=== PATIENT | male | born 1940 | race African-American/Black ===

== ENCOUNTER 2017-05-28 14:07 | Inpatient (IN) | payer OTHER ==
[~2017-05-28] VITALS: Ht 170.2 cm; Wt 58.5 kg
--- NOTE | 2017-05-28 14:07 | NUR ---
Patient was BIBA and taken to bed 08 via gurney per EMS.
--- NOTE | 2017-05-28 14:10 | NUR ---
Dr. Rodrigues evaluating patient at bedside.
[2017-05-28] MEDS ORDERED: NACL 0.9% 1,000 ML IV SCH (14:11)
[2017-05-28 14:13] VITALS: BP 75/49
--- NOTE | 2017-05-28 14:15 | NUR ---
77M BIBA FROM HOME FOR ALTERED LOC; PT AWAKE ON ARRIVAL, BUT NO RESPONSE TO VERBAL OR PAINFUL STIMULI; PT NOT VERBALLY RESPONSIVE AT THIS TIME; PER [facility], PT WAS FOUND ON THE GROUND BY FAMILY; PER [facility], FAMILY LAST SAW PATIENT NORMAL ON 05/20/17; BL LUNG SOUNDS CLEAR, RR EVEN/UNLABORED AT THIS TIME; PT NOTED WITH SLIGHT TACHYCARDIA AND TACHPYNEA ON THE MONITOR AT THIS TIME; NO N/V/D NOTED AT THIS TIME; SKIN IS WARM/DRY; PT NOTED SACRAL OPEN WOUND/ERYTHEMA & ERTHYEMA MID-BACK AT THIS TIME; NO BLEEDING NOTED TO SITES AT THIS TIME; PT PLACED ON MONITOR, RESTING IN BED WITH HOB ELEVATED AND IN LOWEST POSITION; POSITIONED FOR COMFORT; ER MADE AWARE OF STATUS. WILL CONTINUE TO MONITOR. Addendum: 05/28/17 at 1558 by [employer] PT NOTED SACRAL OPEN WOUND/ERYTHEMA & ERTHYEMA BL UPPER BACK AT THIS TIME Addendum: 05/28/17 at 1614 by MEDSS SPOTS OF PINK DISCOLORATION NOTED TO LEFT CHEST.
--- NOTE | 2017-05-28 14:15 | NUR ---
Note undone in EDM - 05/28/17 at 1557 by MEDSS 77M BIBA FROM HOME FOR ALTERED LOC; PT AWAKE ON ARRIVAL, BUT NO RESPONSE TO VERBAL OR PAINFUL STIMULI; PT NOT VERBALLY RESPONSIVE AT THIS TIME; PER [facility], PT WAS FOUND ON THE GROUND BY FAMILY; PER [facility], FAMILY LAST SAW PATIENT NORMAL ON 05/20/17; BL LUNG SOUNDS CLEAR, RR EVEN/UNLABORED AT THIS TIME; PT NOTED WITH SLIGHT TACHYCARDIA AND TACHPYNEA ON THE MONITOR AT THIS TIME; NO N/V/D NOTED AT THIS TIME; SKIN IS WARM/DRY; PT NOTED WITH RT SACRAL OPEN WOUND/ERYTHEMA & ERTHYEMA TO RT MID-BACK AT THIS TIME; NO BLEEDING NOTED TO SITES AT THIS TIME; PT PLACED ON MONITOR, RESTING IN BED WITH HOB ELEVATED AND IN LOWEST POSITION; POSITIONED FOR COMFORT; ER MD MADE AWARE OF STATUS. WILL CONTINUE TO MONITOR.
[2017-05-28] MEDS ORDERED: PIPERACILLIN/TAZOBACTAM 3.375 GM VIAL IV ONE (14:29)
[2017-05-28] MEDS: PIPERACILLIN/TAZOBACTAM 3.375 GM in DEXT 5% MINI-BAG PLUS 50 ML IV ONE ×2 (14:30→14:32)
[2017-05-28 14:35] LABS: BASOPHILS # (AUTO) 0.2 K/uL (0.00-0.22); BASOPHILS % (AUTO) 1.6 % (0.0-2.0); HEMATOCRIT 44.5 % (36-52); LYMPHOCYTES # (AUTO) 1.1 K/uL (2.0-11.5); LYMPHOCYTES % (AUTO) 9.1 % (20.5-51.1); MEAN CORPUSCULAR HEMOGLOBIN 30 pg (27-31); MEAN CORPUSCULAR HGB CONC 31 g/dL (33-37); MEAN CORPUSCULAR VOLUME 95 fL (80-94); MONOCYTES # (AUTO) 1.2 K/uL (0.8-1.0); MONOCYTES % (AUTO) 9.2 % (1.7-9.3); NEUTROPHILS % (AUTO) 80.1 % (42.2-75.2); PLATELET COUNT (AUTO) 216 K/uL (140-450); RED CELL DISTRIBUTION WIDTH 13.7 % (11.6-13.7); WHITE BLOOD COUNT (AUTO) 12.5 K/uL (4.8-10.8)
--- NOTE | 2017-05-28 14:38 | NUR ---
PT TAKEN TO CT VIA [facility] ACCOMPANIED BY [facility] AT THIS TIME.
--- NOTE | 2017-05-28 14:51 | NUR ---
Patient back from CT via [facility].
[2017-05-28 15:00] LABS: PROTHROMBIN TIME 12.1 secs (10.8-13.4)
[2017-05-28 15:00] LABS: APPEARANCE,URINE CLEAR (CLEAR); BLOOD, URINE 3+ (NEGATIVE); COLOR,URINE YELLOW (YELLOW); LEUKOCYTE ESTERASE ,URINE NEGATIVE (NEGATIVE); NITRITE, URINE NEGATIVE (NEGATIVE); UGLUCOSE NEGATIVE (NEGATIVE)
[2017-05-28 15:05] LABS: ALBUMIN 3.5 g/dL (3.4-5.0); ASPARTATE AMINOTRANSFERASE 43 U/L (15-37); CARBON DIOXIDE 22.2 mmol/L (21-32); CHLORIDE 126 mmol/L (98-107); GLUCOSE 203 mg/dL (74-106); POTASSIUM 4.2 mmol/L (3.5-5.1); TOTAL BILIRUBIN 1.4 mg/dL (0.0-1.0)
[2017-05-28 15:14] LABS: CREATININE 9.8 mg/dL (0.7-1.3); SODIUM SERUM 169 mmol/L (136-145); UREA NITROGEN, BLOOD 118 mg/dL (7-18)
[2017-05-28 15:19] LABS: BILIRUBIN,URINE NEGATIVE (NEGATIVE)
[2017-05-28 15:21] LABS: RBC,URINE TOO NUMEROUS TO COUN /HPF (0-5); WBC,URINE 0-5 (RARE) /HPF (0-5)
--- NOTE | 2017-05-28 15:21 | NUR ---
FAMILY AT BEDSIDE; ER MD DR. HU AT BEDSIDE AT THIS TIME.
[2017-05-28] MEDS ORDERED: NACL 0.9% 1,000 ML IV ONE (15:35)
[2017-05-28 15:49] LABS: CKMB RELATIVE INDEX 0.3 (0.0-2.5); CREATINE KINASE MB 7.4 ng/mL (0-3.6)
[2017-05-28] MEDS ORDERED: DEXT 5% /NACL 0.9% 1,000 ML IV SCH (15:55)
[2017-05-28] MEDS ORDERED: MORPHINE SULFATE 4 MG/ML SYR IVP PRN (15:55)
[2017-05-28] MEDS ORDERED: ONDANSETRON 4 MG/2 ML VIAL IVP PRN (15:55)
[2017-05-28] MEDS ORDERED: LORazepam 2 MG/ML VIAL IVP PRN (15:55)
[2017-05-28] MEDS ORDERED: VITD1000 PO (16:02)
[2017-05-28] MEDS ORDERED: GABA300C PO (16:02)
[2017-05-28] MEDS ORDERED: FINA5TAB1 PO (16:02)
[2017-05-28] MEDS ORDERED: TIM.5OS OP (16:02)
[2017-05-28] MEDS ORDERED: ATOR10TA PO (16:02)
[2017-05-28] MEDS ORDERED: AMLO5TAB PO (16:02)
[2017-05-28] MEDS ORDERED: TRAM50TA1 PO (16:02)
[2017-05-28] MEDS ORDERED: ASPI81CT89 PO (16:02)
[2017-05-28] MEDS ORDERED: BACL10TA4 PO (16:02)
[2017-05-28] MEDS ORDERED: DOXA2TAB1 PO (16:02)
[2017-05-28] MEDS ORDERED: OMEP20TC12 PO (16:02)
[2017-05-28] MEDS ORDERED: TROS20TA5 PO (16:02)
[2017-05-28] MEDS ORDERED: LATA2.5S8 OP (16:02)
--- NOTE | 2017-05-28 16:13 | NUR ---
Note alisson in ED - 05/28/17 at 1614 by ALAINA SPOTS OF PINK DISCOLORATION NOTED TO LEFT CHEST.
--- NOTE | 2017-05-28 16:20 | NUR ---
Patient will be admitted to care of DR. Jazmyn MIRANDA. Admited to ICU. Will go to room ICU 3. Belongings list completed. Report to ANDRIY VAUGHAN.
--- NOTE | 2017-05-28 16:35 | NUR ---
PT ARRIVED VIA GURNEY WITH ED RN PRESENT. PT NONRESPONSIVE, DROWSY, ON O2 8L/MIN VIA NON-REBREATHER MASK. 20G IV ON LEFT HAND AND RIGHT WRIST. PATENT AND INTACT. SITE CLEAR, NO REDNESS OR SWELLING NOTED. 16F TAVAREZ CATHETER IN PLACE, WITH 150ML OUTPUT OF LIGHT CYN URINE. WOUND NOTED TO SACROCOCCYX. MRSA SWAB OBTAINED. ADMISSION ASSESSMENT COMPLETE. PT ON MONITOR WITH VS: BP 120/43, P 82, R 27, T 97.3, AND FLACC 0. SINUS RHYTHM ON MONITOR. SAFETY PRECAUTION IN PLACE WITH BED AT LOWEST POSSIBLE POSITION, SIDE RAILS UP X2. CALL LIGHT WITHIN REACH. FAMILY CURRENTLY AT BEDSIDE. WILL CONTINUE TO MONITOR.
[2017-05-28 16:42] VITALS: BP 120/43
--- NOTE | 2017-05-28 16:49 | NUR ---
INSERTED NO 16 BELIZEAN INDWELLING TAVAREZ CATHETER W/O DIFFICULTY IMMEDIATE RETURN OF CYN COLORED URINE OPATIENT TOLERATED WELL.
--- NOTE | 2017-05-28 18:00 | NUR ---
DISCOVERED PT HAS DISCOLORED BUMP NOTED ON TOP OF HEAD. CT SCAN COMPLETED IN ER. NO ACUTE INTRACRANIAL PATHOLOGY ACCORDING TO IMAGING RESULT. PT HAS D5NS INFUSING AT 100ML/HR.
[2017-05-28 18:50] VITALS: BP 102/72
--- NOTE | 2017-05-28 19:30 | NUR ---
RECEIVED PT FROM AM SHIFT. PT DROWSY,RESPOND TO PAIN STIMULATE. ON O2 AT 2 LPM VIA NASAL CANULA. O2 SAT 95 %. SINUS RHYTHM ON MONITOR. LUNGS SOUND CLEAR. MULTIPLE OPEN AREA ON THE BODY. PT NPO AT THIS TIME. ON IV D5 IN NS AT 100 CC/HR TO RIGHT WRIST WITH NO 20 GAUGE AND IV LINE TO LEFT HAND WITH 20 GAUGE, PORT INTACT WELL.SKIN DRY WARM TO TOUCH.F/C INPLACE WITH YELLOW URINE DRAIN BY GRAVITY.SAFETY PRECAUTION RENDERED.
[2017-05-28 20:00] VITALS: BP 136/70
[2017-05-28] MEDS: PIPER/TAZO 2.25GM/D5W PREMIX 50 ML IV SCH (20:53)
[2017-05-28] MEDS ORDERED: PIPERACILLIN/TAZOBACTAM 2.25 GM in DEXTROSE 5% 50 ML IV SCH (21:00)
--- NOTE | 2017-05-28 21:00 | NUR ---
IV ABT ZOSYN 2.25 GRAM GIVEN TO RIGHT WRIST TOLERATED WELL.
[2017-05-28 22:00] VITALS: BP 120/73
--- NOTE | 2017-05-28 22:00 | NUR ---
PT SLEEPING WELL,NO S/S OF RESP DISTRESS,NO SOB NOTED.
--- NOTE | 2017-05-28 23:30 | NUR ---
BLOOD DRAWN FOR CARDIAC PANEL DONE RESULT STILL PENDING.
[2017-05-29] VITALS (9 sets, daily range): BP systolic 106–129; BP diastolic 63–84
[2017-05-29 00:30] LABS: CREATINE KINASE MB 92.4 ng/mL (0-3.6)
--- NOTE | 2017-05-29 00:55 | NUR ---
DR.PALIWAL MENA BACKEND DEVELOPER MADE AWARE TROPONIN LEVEL 1.537. NEW ORDER GIVEN TO DO ECG AND ECHO IN AM. ORDER WAS CARRIED OUT.
--- NOTE | 2017-05-29 02:30 | NUR ---
PT SLEEPING WELL,NO S/S OF PAIN OR DISCOMFORT AT THIS TIME.NO S/S OF RESP DISTRESS,NO SOB.
[2017-05-29] MEDS: PIPER/TAZO 2.25GM/D5W PREMIX 50 ML IV SCH ×3 (04:40→20:11)
[2017-05-29] MEDS: MORPHINE SULFATE 2 MG/ML SYR IVP PRN (04:41)
--- NOTE | 2017-05-29 04:41 | NUR ---
PAIN NOTED BY FACIAL GRIMMICING AND MOANING. PT TRY TO OPEN HIS EYES WHEN CALLING HIS NAME. REPOSITION PT FOR COMFORT. PRN PAIN MEDS GIVEN ORDERED.
--- NOTE | 2017-05-29 05:00 | NUR ---
AM MEDS GIVEN,AM CARE RENDERED.KEPT CLEAN AND DRY.
--- NOTE | 2017-05-29 05:11 | NUR ---
RE ASSESSMENT DONE FOR PAIN,PT SLEEPING WELL,NO S/S OF PAIN OR DISCOMFORT AT THIS TIME.
[2017-05-29 07:19] LABS: HEMATOCRIT 40.9 % (36-52); HEMOGLOBIN 12.9 g/dL (12.0-18.0); MEAN CORPUSCULAR HEMOGLOBIN 30 pg (27-31); MEAN CORPUSCULAR HGB CONC 32 g/dL (33-37); MEAN CORPUSCULAR VOLUME 96 fL (80-94); RED BLOOD CELL COUNT(AUTO) 4.27 MIL/uL (4.20-6.10); RED CELL DISTRIBUTION WIDTH 14.1 % (11.6-13.7); WHITE BLOOD COUNT (AUTO) 11.5 K/uL (4.8-10.8)
--- NOTE | 2017-05-29 07:20 | NUR ---
RECEIVED REPORT FROM NIGHT RN FOR CONTINUITY OF CARE. PT LETHARGIC, EASILY AROUSABLE TO NAME AND PAIN. RIGHT PERIPHERAL IV NOTED, PATENT AND INTACT. LEFT PERIPHERAL IV PATENT AND INTACT. D5NS INFUSING AT 100ML/HR TO RIGHT HAND. TAVAREZ CATHETER IN PLACE. NO SOB NOTED. VS WNL. SINUS BRADYCARDIA ON MONITOR. FLACC 0. SCD IN PLACE. BED AT LOWEST POSSIBLE POSITION, CALL LIGHT WITHIN REACH. WILL CONTINUE TO MONITOR PT.
[2017-05-29 07:42] LABS: PLATELET COUNT (AUTO) 163 K/uL (140-450)
[2017-05-29 07:43] LABS: LYMPHOCYTES % (MANUAL) 6 % (20-46); MONOCYTES % (MANUAL) 3 % (5-12)
--- NOTE | 2017-05-29 07:49 | NUR ---
PATIENT HAS BEEN RESCREENED AND RE-CATEGORIZED HIGH NUTRITION RISK. PATIENT WILL BE SEEN WITHIN 1-2 DAYS OF ADMISSION. 05/29/17-05/30/[address]
--- NOTE | 2017-05-29 08:11 | NUR ---
RECEIVED A CALL FROM [employer] [facility], [place]. WILL HAVE LABS [place].
--- NOTE | 2017-05-29 08:16 | NUR ---
RT AT BEDSIDE. EKG PERFORMED.
--- NOTE | 2017-05-29 09:22 | NUR ---
PAGED DR. Jazmyn MIRANDA REGARDING CRITICAL LAB VALUES. AWAITING CALLBACK.
--- NOTE | 2017-05-29 09:30 | NUR ---
RECEIVED CALLBACK FROM DR. Jazmyn MIRANDA. NEW ORDERS RECEIVED.
[2017-05-29 09:33] LABS: ANION GAP 18.6 (8-16); CHLORIDE 130 mmol/L (98-107); GLUCOSE 426 mg/dL (74-106); POTASSIUM 3.6 mmol/L (3.5-5.1); SODIUM SERUM 167 mmol/L (136-145)
[2017-05-29 09:34] LABS: CREATININE 9.1 mg/dL (0.7-1.3); UREA NITROGEN, BLOOD 167 mg/dL (7-18)
[2017-05-29 09:35] LABS: ALBUMIN 2.7 g/dL (3.4-5.0); ASPARTATE AMINOTRANSFERASE 151 U/L (15-37); MAGNESIUM 2.9 mg/dL (1.8-2.4); PHOSPHORUS 3.7 mg/dL (2.5-4.9)
[2017-05-29 09:44] LABS: CREATINE KINASE MB 55.4 ng/mL (0-3.6)
--- NOTE | 2017-05-29 10:20 | NUR ---
PT TRANSPORTED TO RADIOLOGY DEPARTMENT.
--- NOTE | 2017-05-29 10:32 | NUR ---
DR. Jazmyn MIRANDA IN TO SEE PT. WILL FOLLOW UP ON ORDERS.
--- NOTE | 2017-05-29 11:30 | NUR ---
PT RETURNED FROM RADIOLOGY DEPARTMENT.
[2017-05-29] MEDS: DEXT 5% / NACL 0.45% 1,000 ML IV SCH ×2 (11:40→20:10)
--- NOTE | 2017-05-29 11:45 | NUR ---
US TECH AT BEDSIDE FOR ECHOCARDIOGRAM.
[2017-05-29] MEDS: BLOOD GLUCOSE MONITORING 1 DEV DEV FS SCH ×3 (11:46→20:52)
[2017-05-29] MEDS: INSULIN LISPRO SLIDING SCALE 100 UNITS/ML VIAL SUBQ PRN ×3 (11:50→20:59)
--- NOTE | 2017-05-29 12:08 | NUR ---
PAGED DR. Jazmyn MIRANDA REGARDING MEDICATION RECONCILIATION. AWAITING CALLBACK.
--- NOTE | 2017-05-29 14:10 | NUR ---
DR. MCKEON SEEN AND EVALUATED PT. SPOKE WITH PT'S BROTHER REGARDING PT CONDITION. DISCUSSED PLANS OF POSSIBLE DIALYSIS. RECEIVED NEW ORDERS TO INCREASE IV FLUID RATE AT 150ML/HR. ORDERS CARRIED OUT.
--- NOTE | 2017-05-29 14:46 | NUR ---
US TECH AT BEDSIDE FOR US OF KIDNEYS.
--- NOTE | 2017-05-29 15:20 | NUR ---
DR. Jean MIRANDA CAME IN TO SEE AND ASSESS PT. WILL FOLLOW UP ON ORDERS.
--- NOTE | 2017-05-29 16:40 | NUR ---
SPEECH THERAPIST AT BEDSIDE FOR SWALLOW EVAL.
--- NOTE | 2017-05-29 17:12 | NUR ---
* ST NOTE * Pt seen at bedside w/brother and nsg present. Pt appearing lethargic and not verbally replying to inquiries consistently. Bedside dysphagia and oral mechanism exams completed. See evaluation report for further details. Pt tolerating 0/1 alternating PO trial of 3-4 CCs of honey-thick apple juice via a spoon, as well as 0/1 alternating PO trial of 3-4 CCs of puree apple sauce via a spoon, all exhibiting delay and difficulty with AP bolus transit, as well as 30+ second delay with swallow initiation, placing pt at high risk for premature spillage, penetration and aspiration. Therapeutic feeding trials were thus concluded at this time and oral cavity was cleared of remaining residue and pocketed bolus. It is thus recommended pt remain NPO at this time secondary to moderate oropharyngeal dysphagia. ST to follow up 1-2x in next 1 week to further assess pt's potential for PO intake as well as to further address swallow function. Pt, caregivers/nsg and caregivers/brother education completed regarding results of evaluation, benefits of receiving skilled DIRECTOR DATABASE services, POC and prognosis for improvement; with pt indifferent to clinician's recommendations but w/caregiver/brother and caregivers/nsg verbalizing understanding and agreement w/clinician's recommendations. Recommend: - Pt remain NPO at this time secondary to mild to moderate dysphagia as well as ALOC - Caregivers/nsg/staff to complete oral hygiene care daily ST to follow up 1-2x in next 1 week to further assess swallow function and potential for PO intake. G8996 CM G8997 CM NOMS Level 6 Time In/Out 16:40 - 17:10
--- NOTE | 2017-05-29 18:00 | NUR ---
TALK TO FAMILY ARE NOT SURE ABOUT VACCINATION. WOULD LIKE TO LET US KNOW AFTER THEY FIND OUT FOR SURE BEFOR GIVE THE ANSWER .
--- NOTE | 2017-05-29 18:10 | NUR ---
FAMILY AT BEDSIDE. PT'S DAUGHTER, MARY, REQUESTING TO SPEAK WITH [employer] COOK. MESSAGED LEFT TO [employer]. WILL ENDORSE TO NIGHT NURSE.
--- NOTE | 2017-05-29 19:10 | NUR ---
REPORT GIVEN TO NIGHT RN FOR CONTINUITY OF CARE. ENDORSED INFORMATION REGARDING POSSIBLE MEETING OF DAUGHTER WITH [facility] PER DAUGHTER'S REQUEST.
--- NOTE | 2017-05-29 19:14 | NUR ---
WEANED TO ROOM AIR.
--- NOTE | 2017-05-29 19:30 | NUR ---
recieved pt. confused, respiration even and unlabored, on npo, failed swallow evaluation, turned to sides, no distress noted.
[2017-05-30] VITALS: BP 106/49
[2017-05-30] MEDS: DEXT 5% / NACL 0.45% 1,000 ML IV SCH ×4 (03:31→18:55)
[2017-05-30 04:00] VITALS: BP 101/74
[2017-05-30 05:00] LABS: EOSINOPHILS # (AUTO) 0.1 K/uL (0-0.4)
[2017-05-30] MEDS: PIPER/TAZO 2.25GM/D5W PREMIX 50 ML IV SCH ×3 (05:07→21:04)
[2017-05-30 06:05] LABS: BASOPHILS # (AUTO) 0.1 K/uL (0.00-0.22); BASOPHILS % (AUTO) 0.7 % (0.0-2.0); EOSINOPHILS % (AUTO) 0.9 % (0.0-4.0); HEMATOCRIT 36.8 % (36-52); HEMOGLOBIN 11.7 g/dL (12.0-18.0); LYMPHOCYTES # (AUTO) 0.6 K/uL (2.0-11.5); LYMPHOCYTES % (AUTO) 4.5 % (20.5-51.1); MEAN CORPUSCULAR HEMOGLOBIN 30 pg (27-31); MEAN CORPUSCULAR HGB CONC 32 g/dL (33-37); MEAN CORPUSCULAR VOLUME 94 fL (80-94); MONOCYTES # (AUTO) 0.6 K/uL (0.8-1.0); MONOCYTES % (AUTO) 4.8 % (1.7-9.3); NEUTROPHILS # (AUTO) 11.3 K/uL (1.8-7.7); NEUTROPHILS % (AUTO) 89.1 % (42.2-75.2); PLATELET COUNT (AUTO) 122 K/uL (140-450); RED CELL DISTRIBUTION WIDTH 13.8 % (11.6-13.7)
[2017-05-30 06:29] LABS: ANION GAP 17.3 (8-16); CARBON DIOXIDE 20.5 mmol/L (21-32); CHLORIDE 130 mmol/L (98-107); GLUCOSE 283 mg/dL (74-106); MAGNESIUM 2.3 mg/dL (1.8-2.4); PHOSPHORUS 2.9 mg/dL (2.5-4.9); POTASSIUM 3.8 mmol/L (3.5-5.1)
[2017-05-30 06:39] LABS: WHITE BLOOD COUNT (AUTO) 12.7 K/uL (4.8-10.8)
[2017-05-30 06:55] LABS: CREATININE 8.7 mg/dL (0.7-1.3); SODIUM SERUM 164 mmol/L (136-145); UREA NITROGEN, BLOOD 116 mg/dL (7-18)
--- NOTE | 2017-05-30 07:15 | NUR ---
RECEIVED PATIENT ON BED.INITIAL ASSESSMENT DONE TO PATIENT .RIGHT WRIST 20 GAUGE IV WITH D5.45 AT 150 ML/H .NO SIGNS OF INFILTRATION.LEFT HAND IV OCCLUDED.REMOVED.PT TOLERATED WELL.PT ON ROOM AIR.TAVAREZ WITH YELLOW URINE OUTPUT.NO CO PAIN.PT IS ALERT TO PERSON BUT WITH PERIODS OF CONFUSION.NSR ON THE MONITOR.MEPILEX AT SACRAL, BACK, POSTERIOR HEAD DRY AND INTACT .WILL MONITOR.
[2017-05-30] MEDS ORDERED: PROBIOTIC SCREEN 1 EA MISC MC PRN (07:30)
[2017-05-30] MEDS: INSULIN LISPRO SLIDING SCALE 100 UNITS/ML VIAL SUBQ PRN ×3 (07:50→21:10)
[2017-05-30 08:00] VITALS: BP 103/54
[2017-05-30] MEDS: BLOOD GLUCOSE MONITORING 1 DEV DEV FS SCH ×4 (08:00→21:00)
--- NOTE | 2017-05-30 08:00 | NUR ---
jere orantes at the bedside and notified patient is going to [facility].
--- NOTE | 2017-05-30 08:15 | NUR ---
RECEIVED REPORT FROM RUBY ASHRAF.
--- NOTE | 2017-05-30 08:15 | NUR ---
report given to char sutherland rn. Addendum: 05/30/17 at 1533 by Meenakshi Fowler RN RN OFE OWENS
--- NOTE | 2017-05-30 08:30 | NUR ---
PATIENT IS AAOX2, RESPIRATORY EVEN AND UNLABORED, NO SIGNS AND SYMPTOMS OF ACUTE DISTRESS. OTHER NURSES ASSISTED ME IN TRANSFERRING PATIENT FROM BED TO BED, PATIENT TOLERATED WELL. HAS D5 1/2 NS INFUSING AT 150ML/HR TO RIGHT WRIST IN 20G. SITE IS CLEAN, DRY AND INTACT. PATIENT HAS TAVAREZ CATHETER TO GRAVITY. ORIENTED PATIENT TO ROOM, BED IN LOWEST POSITION, SIDERAILS UP X2, CALL LIGHT PLACED WITHIN REACH, BED ALARM ON. WILL CONTINUE TO MONITOR.
--- NOTE | 2017-05-30 08:30 | NUR ---
TRANSFER PATIENT TO 107 A WITH A MONITOR.NO CO PAIN .SON AT THE BEDSIDE WHILE TRANSFERRING.
--- NOTE | 2017-05-30 09:45 | NUR ---
REASON FOR EVALUATION: MULTIPLE WOUNDS COMPLETE SKIN ASSESSMENT DONE ON THIS 89Y/O MALE PATIENT FROM HOME TO [facility], WITH INITIAL DIAGNOSIS OF FEVER ANDPT. WAS FOUND UNRESPONSIVE AT HOME, PT. WAS LAST SEEN ON 05/20/2017. PAST MEDICAL HISTORY INCLUDE HTN, CHRONIC PAIN, MS, DYSLIPIDEMIA AND DYSPEPSIA. ALL ABOVE INFORMATION WAS OBTAINED FROM THE ADMISSION H&P. LABS ARE WBC 12.7, H/H 11.7/36.8, GLUCOSE 283, ALBUMIN 2.7. CURRENT MEDS INCLUDE PIPERACILLIN, INSULIN, MORPHINE SULFATE AND ATIVAN. PATIENT IS AWAKE, ALERT, AND ABLE TO FOLLOW COMMANDS. SKIN WARM TO TOUCH WNL, VERY SENSITIVE TO TOUCH.THICKENED TOENAILS, NO EDEMA, NO HAIR GROWTH AND BILATERAL PEDAL PULSES PRESENT. RIGHT FOREARM PERIPHERAL IV PATENT AND INTACT. #16 TAVAREZ CATHETER PATENT AND INTACT TO CYN COLORED URINE IN SMALL AMOUNT. NEEDS ASSISTANCE IN TURNING. SON, PABLO, AT BED SIDE. PLAN OF CARE DISCUSSED WITH PT AND PRIMARY NURSE. RECOMMENDATIONS DISCUSSED WITH PRIMARY RN AND MD AT BED SIDE WILL FOLLOW UP PATIENT Q 7 -10 DAYS AND PRN. PLEASE CONTACT WOUND CARE NURSE FOR ANY CONCERNS AND CHANGES IN WOUND CONDITION
--- NOTE | 2017-05-30 11:32 | NUR ---
05/30/17 RD INITIAL ASSESSMENT COMPLETED PLEASE REFER TO NUTRITION ASSESSMENT UNDER CARE ACTIVITY FOR ESTIMATED NUTRITIONAL NEEDS. 1. WHEN MEDICALLY FEASIBLE, INITIATE PO DIET - CARDIAC WITH TEXTURE PER ST RECOMMENDATIONS 2. ADD VITAMIN C SUPPLEMENT 1000 MG/DAY (FOR WOUND HEALING) 3. RD TO FOLLOW-UP 2-3 DAYS, HIGH RISK ASHA JAY RD
--- NOTE | 2017-05-30 11:34 | NUR ---
SPOKE WITH BHAVNA FROM [place]. HE SAID THE DAUGHTER OF THE PATIENT CALLED THEM AND WANTED TO KNOW IF THE PATIENT COULD BE TRANSFERED TO [place]. BHAVNA ASKED ME TO SEND SOME INFORMATION. SENT ER REPORT, H&P , CONSULT TO HIM AT [phone]. PHONE [phone]. HE ALSO SAID AT PRESENT NO BEDS.
--- NOTE | 2017-05-30 11:40 | NUR ---
CALLED [facility] AND SPOKE WITH GENIE. SHE SAID THEY HAVE A CONTRACT WITH [place]. SENT INQUIRY TO HER FAX [phone]. I INFORMED THE SON IN LAW,PABLO, THAT [facility] HAS A CONTRACT WITH [place]. I ALSO GAVE HIM A LIST OF SNF'S. Addendum: 05/30/17 at 1144 by Crystal Freeman SENT FACE SHEET ONLY TO [facility]
[2017-05-30 12:00] VITALS: BP 103/53
[2017-05-30] MEDS ORDERED: THERAHONEY GEL 42.5 GM TP PRN (12:40)
[2017-05-30] MEDS ORDERED: FOAM DRESSING TP PRN (12:40)
[2017-05-30] MEDS ORDERED: Z-GUARD PASTE TP PRN (12:40)
[2017-05-30] MEDS ORDERED: SKINTEGRITY HYDROGEL TP PRN (12:40)
[2017-05-30] MEDS: SKINTEGRITY HYDROGEL TP SCH (13:00)
[2017-05-30] MEDS: FOAM DRESSING TP SCH (13:00)
[2017-05-30] MEDS: THERAHONEY GEL 42.5 GM TP SCH (13:00)
[2017-05-30] MEDS: Z-GUARD PASTE TP SCH (13:00)
[2017-05-30] MEDS: NACL 0.9% IRR 250 ML BOTTLE IR SCH (13:00)
[2017-05-30] MEDS: MORPHINE SULFATE 2 MG/ML SYR IVP PRN (13:36)
--- NOTE | 2017-05-30 14:00 | NUR ---
RECEIVED WOUND CARE ITEMS FROM PHARMACY TO CHANGE PATIENTS DRESSING. PATIENT HAS ALREADY BEEN MEDICATED WITH MORPHINE.
--- NOTE | 2017-05-30 14:40 | NUR ---
NEW DRESSINGS APPLIED TO AREAS ORDERED PER WOUND CARE NURSE. TRANSFERRED PATIENT TO OFF LIFT BED. PATIENT TOLERATED WELL. WILL CONTINUE TO MONITOR.
[2017-05-30 16:00] VITALS: BP 110/55
--- NOTE | 2017-05-30 16:29 | NUR ---
* ST NOTE * Pt seen at bedside w/nsg and pt's daughter Kelly present. Pt consenting to tx w/daughter Kelly present. Pt alert but moderately cooperative throughout session, reporting c/o pain at wound sites when moving HOB up but pt stating pain subsiding once he stops moving. Nsg aware of pt's c/o pain. Pt tolerating 4/4 alternating PO trials of puree apple sauce 3-4 CCs at a time via a spoon w/out s/s of aspiration. Pt exhibiting tongue thrust during initial PO trial and occasionally requiring verbal cueing to swallow bolus. Pt also tolerating 2/3 alternating PO trials of thin liquid apple juice via a straw w/out s/s of aspiration but exhibiting coughing on 1/3 trials. Pt then tolerating 6/6 alternating PO trials of thin liquid apple juice via a cup w/out s/s of aspiration. Pt and caregiver/daughter education completed regarding safe swallow compensatory strategies pt and caregivers/daughter/nsg could utilize to aid pt w/swallow function, as well as recommendation for pt to drink liquids via a cup as opposed to a straw until pt's level of alertness improves/increases, with pt indifferent to clinician's remarks but w/caregiver/daughter verbalizing understanding and agreement w/clinician's recommendations. It is thus recommended pt be DCed off NPO status and pt begin PO intake of puree textures w/thin liquids for all meals, requiring close supervision during PO intake by caregivers/family/staff to assure strict aspiration precautions are in place, with pt indifferent once again but w/daughter/caregiver verbalizing understanding and agreement as well. Recommend: - D/C NPO status - Begin PO diet consistency of Puree textures w/Thin liquids for all meals - Pt requires total assistance w/feeding - Feeder to sit pt up at 70-90 degree angle during PO intake, alternating btwn solids and liquids, utilizing small bites/sips - Caregivers/family/nsg to encourage pt to drink from a cup, but pt may drink from straw if he insists - Utilize STRICT aspiration precautions during PO intake, especially if pt insists on drinking liquids via straw ST to follow up x1 in next 3 days. G8997 NOMS Level 3 Time In/Out 15:15 - 16:00 PVE w/daughter re: aspiration precautions and ST ff x1 in next 3 days.
--- NOTE | 2017-05-30 16:30 | NUR ---
PATIENT IS SLEEPING, DAUGHTER IS AT THE BEDSIDE. WILL CONTINUE TO MONITOR.
--- NOTE | 2017-05-30 19:15 | NUR ---
ENDORSED PATIENT TO PAY STATION DEPARTMENT MANAGER RN FOR CONTINUITY OF CARE. PATIENT IN STABLE CONDITION.
--- NOTE | 2017-05-30 19:30 | NUR ---
RECEIVED REPORT FROM DAY RN. PATIENT RESTING IN WOUND BED. THE THERAPY SURFACE IS IN ACTIVE MODE. PATIENT IS CONFUSED, ORIENTED PATIENT TO THE ROOM, DATE AND TIME. IV PATENT AND INTACT, INFUSING D5 1/5NS AT 150ML/HR, NOTED TAVAREZ IN PLACE, DRAINING URINE BY GRAVITY. DRESSING OVER THE SACRALCOCCYX AREA CLEAN AND INTACT. DRESSING TO THE LT POSTERIOR KNEE, CLEAN AND DRY. DRESSING TO THE LT OCCIPITAL CLEAN AND DRY. DRESSING TO THE LT AND RT SCAPULAR , CLEAN AND INTACT, REPOSITIONED THE PATIENT TO HIS LT SIDE WITH THE DIRECTOR OF FIELD SALES. PATIENT TOLERATED WELL. CALL LIGHT WITHIN REACH, SAFETY MEASURE ENSURED, WILL CONTINUE TO MONITOR.
[2017-05-30 20:00] VITALS: BP 91/64
--- NOTE | 2017-05-30 22:25 | NUR ---
PATIENT IS SLEEPING, EASY TO AROUSE. NO S/S OF ACUTE DISTRESS NOTED, RESPIRATION EVEN AND UNLABORED, REPOSITIONED PATIENT TO HIS RIGHT SIDE WITH THE FILTER CHANGING TECHNICIAN, CALL LIGHT WITHIN REACH, SAFETY MEASURE ENSURED, WILL CONTINUE TO MONITOR.
[2017-05-31] VITALS: BP 117/58
--- NOTE | 2017-05-31 00:27 | NUR ---
PATIENT IS SLEEPING, EASY TO AROUSE. VITAL SIGNS WITH IN NORMAL RANGE. NO S/S OF ACUTE DISTRESS NOTED, RESPIRATION EVEN AND UNLABORED, REPOSITIONED PATIENT TO HIS LT SIDE WITH THE STORE OPERATIONS MANAGER, CALL LIGHT WITHIN REACH, SAFETY MEASURE ENSURED, WILL CONTINUE TO MONITOR.
--- NOTE | 2017-05-31 02:32 | NUR ---
PATIENT STATED," I HAD BOWEL MOVEMENT." CHECKED PATIENT, NO BOWEL MOVEMENT, BUT NOTED THE DRESSING ON THE SACRALCOCCYX AREA IS SOILED. DRESSING CHANGED, PATIENT TOLERATED, REPOSITIONED PATIENT TO HIS RT SIDE. CALL LIGHT WITHIN REACH, SAFETY MEASURE ENSURED, WILL CONTINUE TO MONITOR.
[2017-05-31 04:00] VITALS: BP 111/63
--- NOTE | 2017-05-31 04:30 | NUR ---
REPOSITIONED PATIENT TO HIS LEFT SIDE. NO S/S OF DISTRESS NOTED, RESPIRATION EVEN AND UNLABORED, WILL CONTINUE TO MONITOR.
[2017-05-31] MEDS: PIPER/TAZO 2.25GM/D5W PREMIX 50 ML IV SCH ×3 (05:18→20:48)
[2017-05-31] MEDS: DEXT 5% / NACL 0.45% 1,000 ML IV SCH ×4 (05:18→23:46)
--- NOTE | 2017-05-31 06:04 | NUR ---
PATIENT RESTING IN BED, NO S/S OF ACUTE DISTRESS NOTED, RESPIRATION EVEN AND UNLABORED, REPOSITIONED PATIENT TO HIS RIGHT SIDE. CALL LIGHT WITHIN REACH, SAFETY MEASURE ENSURED, WILL CONTINUE TO MONITOR.
[2017-05-31 06:26] LABS: BASOPHILS # (AUTO) 0.1 K/uL (0.00-0.22); BASOPHILS % (AUTO) 1.1 % (0.0-2.0); EOSINOPHILS # (AUTO) 0.4 K/uL (0-0.4); EOSINOPHILS % (AUTO) 3.2 % (0.0-4.0); HEMOGLOBIN 10.7 g/dL (12.0-18.0); LYMPHOCYTES % (AUTO) 8.8 % (20.5-51.1); MEAN CORPUSCULAR HEMOGLOBIN 31 pg (27-31); MEAN CORPUSCULAR HGB CONC 32 g/dL (33-37); MEAN CORPUSCULAR VOLUME 95 fL (80-94); MONOCYTES # (AUTO) 0.3 K/uL (0.8-1.0); MONOCYTES % (AUTO) 2.5 % (1.7-9.3); NEUTROPHILS # (AUTO) 10.1 K/uL (1.8-7.7); NEUTROPHILS % (AUTO) 84.4 % (42.2-75.2); PLATELET COUNT (AUTO) 101 K/uL (140-450); RED BLOOD CELL COUNT(AUTO) 3.49 MIL/uL (4.20-6.10); RED CELL DISTRIBUTION WIDTH 13.6 % (11.6-13.7)
[2017-05-31] MEDS: BLOOD GLUCOSE MONITORING 1 DEV DEV FS SCH ×4 (06:47→20:09)
[2017-05-31] MEDS: INSULIN LISPRO SLIDING SCALE 100 UNITS/ML VIAL SUBQ PRN ×4 (06:49→20:50)
[2017-05-31 07:07] LABS: MAGNESIUM 1.9 mg/dL (1.8-2.4); PHOSPHORUS 4.1 mg/dL (2.5-4.9)
[2017-05-31 07:13] LABS: ANION GAP 18.4 (8-16); CARBON DIOXIDE 18.3 mmol/L (21-32); CHLORIDE 126 mmol/L (98-107); GLUCOSE 236 mg/dL (74-106); POTASSIUM 3.7 mmol/L (3.5-5.1)
--- NOTE | 2017-05-31 07:15 | NUR ---
ENDORSED PLAN OF CARE TO DAY RN. PATIENT RESTING IN BED, NO S/S OF DISTRESS, RESPIRATION EVEN AND UNLABORED.
--- NOTE | 2017-05-31 07:16 | NUR ---
RECEIVED REPORT FROM THE SUPERVISOR FILES NURSE. PT IS AWAKE AND CONFUSED. INTRODUCED MYSELF AND UPDATED THE INFO ON THE BOARD. PT IS SHOUTING ABOUT WANTING TO GO HOME. PT HAS A IV ON R WRIST 20G, D5 1/2 NS AT 150ML INFUSING. PT HAS MULTIPLE WOUNDS, ALL COVERED WITH DRESSING. WILL DO WOUND CARE LATER. WILL CONTINUE TO MONITOR PT.
[2017-05-31 07:24] LABS: CREATININE 8.4 mg/dL (0.7-1.3); SODIUM SERUM 159 mmol/L (136-145); UREA NITROGEN, BLOOD 105 mg/dL (7-18)
--- NOTE | 2017-05-31 07:25 | NUR ---
CRITICAL LABS: SODIUM 159, CREATININE 8.4, BUN 105. WILL NOTIFY
[2017-05-31 07:49] LABS: CKMB RELATIVE INDEX 0.3 (0.0-2.5); CREATINE KINASE MB 17.1 ng/mL (0-3.6)
--- NOTE | 2017-05-31 07:50 | NUR ---
PT V/S WITHIN NORMAL RANGE. PT STATES HE NEEDS TO GO TO THE BATHROOM. REMINDED PT, PT IS ON BEDREST AND PT HAS A TAVAREZ CATH. AND PT REFUSED TO USE A BEDPAN. PT IS UNABLE TO FOLLOW BASIC COMMANDS BUT IS ABLE COMMUNICATE WHAT HIS WANTS AND NEEDS AT THE TIME, EVEN IF IT IS INAPPROPRIATE. DR MIRANDA IS HERE AND NOTIFIED HIM OF THE CRITICAL LABS. MD AWARE. NO NEW ORDERS.
[2017-05-31 07:53] LABS: WHITE BLOOD COUNT (AUTO) 11.9 K/uL (4.8-10.8)
[2017-05-31 08:00] VITALS: BP 123/56
--- NOTE | 2017-05-31 09:20 | NUR ---
PT REQUESTED TO GO HOME. EXPLAINED TO PT THAT HE IS NOT WELL ENOUGH TO GO HOME OF YET. IF ANYTHING, HE NEEDS TO GO TO A SNF TO GET ABX AND PT. PT IS WILLING TO SIGN AN AMA TO GO. TOLD PT THAT I WILL TALK TO HIS DR ABOUT AMA. CALLED DAUGHTER. LEFT MESSAGE TO CALL ME BACK. EXPLAINED SITUATION.
--- NOTE | 2017-05-31 10:35 | NUR ---
PT IS BEING CHANGED BY DENTAL SECRETARY. BROTHER IS HERE. SPOKE TO HIM RE PT'S REQUEST FOR AMA. BROTHER DOES NOT HAVE POWER OF JEWEL INSPECTOR OR CONSERVATORSHIP. UNABLE TO TAKE HIM HOME WELL. POSSIBLY THE DAUGHTER. STILL NO RETURN CALL. WILL CONTINUE TO MONITOR PT.
[2017-05-31 12:00] VITALS: BP 102/55
--- NOTE | 2017-05-31 12:01 | NUR ---
DAUGHTER VISITING. OTHER FAMILY MEMBERS HERE. SPOKE TO DAUGHTER REGARDING PT WANTING TO GO AMA. DAUGHTER IS LOOKING INTO A [place] CONTRACTED SNF FOR P/T AND IV ANTIBIOTICS. FAMILY IS IN AGREEMENT THAT PT WILL BE GOING TO A SNF AND NOT HOME AT THIS TIME. THEY WILL TALK TO THE PT. Addendum: 05/31/17 at 1205 by Adriana Campos RN STUDENT RN TRIED TO START NEW IV ON PT WHEN FAMILY CAME IN. MISSED. WILL ALLOW THE FAMILY TO VISIT NOW. WILL RETRY AGAIN LATER.
--- NOTE | 2017-05-31 13:30 | NUR ---
RESTARTED ANOTHER IV ON R HAND 22G. PT TOLERATED WELL. ALL THE FAMILY LEFT. WILL ADMINISTER NEW BAG OF FLUIDS AND ZOSYN.
[2017-05-31] MEDS: NACL 0.9% IRR 250 ML BOTTLE IR SCH (14:39)
[2017-05-31] MEDS: SKINTEGRITY HYDROGEL TP SCH (14:40)
[2017-05-31] MEDS: THERAHONEY GEL 42.5 GM TP SCH (14:40)
[2017-05-31] MEDS: Z-GUARD PASTE TP SCH (14:41)
--- NOTE | 2017-05-31 14:58 | NUR ---
PT SLEEPING SOUNDLY. NO SIGNS OF DISTRESS. WILL CONTINUE TO MONITOR PT.
--- NOTE | 2017-05-31 15:50 | NUR ---
WOUND CARE DONE. MULTIPLE WOUNDS. DRESSINGS ALL CHANGED. PT TOLERATED WELL. WILL CONTINUE TO MONITOR PT.
[2017-05-31 16:00] VITALS: BP 96/66
--- NOTE | 2017-05-31 17:50 | NUR ---
SOUND SYSTEM INSTALLER FED PT DINNER. ATE 100%. PT TOLERATED WELL. WILL CONTINUE TO MONITOR PT.
--- NOTE | 2017-05-31 19:19 | NUR ---
ENDORSED PT TO THE PROGRAM MEDICAL DIRECTOR NURSE AT BEDSIDE FOR CONTINUITY OF CARE. PT IS IN STABLE CONDITION.
--- NOTE | 2017-05-31 19:20 | NUR ---
RECEIVED REPORT FROM DAY RN. PATIENT RESTING IN WOUND BED AND THE THERAPY SURFACE IS IN ACTIVE MODE. PATIENT IS CONFUSED, ORIENTED PATIENT TO THE ROOM, DATE AND TIME. IV PATENT AND INTACT, INFUSING D5 1/5NS AT 150ML/HR, TAVAREZ IN PLACE, DRAINING URINE BY GRAVITY. DRESSING OVER THE SACRALCOCCYX AREA CLEAN AND INTACT. DRESSING TO THE LT POSTERIOR KNEE, CLEAN AND DRY. DRESSING TO THE LT OCCIPITAL CLEAN AND DRY. DRESSING TO THE LT AND RT SCAPULAR , CLEAN AND INTACT, REPOSITIONED THE PATIENT TO HIS RT SIDE WITH THE KILN FIRER. PATIENT TOLERATED WELL. CALL LIGHT WITHIN REACH, SAFETY MEASURE ENSURED, WILL CONTINUE TO MONITOR.
[2017-05-31 20:00] VITALS: BP 127/77
--- NOTE | 2017-05-31 21:08 | NUR ---
DUE MEDICATION GIVEN, PATIENT TOLERATED WELL. NO S/S OF ACUTE DISTRESS NOTED, REPOSITIONED PATIENT TO HIS LT SIDE, CALL LIGHT WITHIN REACH, SAFETY MEASURE ENSURED ,WILL CONTINUE TO MONITOR.
--- NOTE | 2017-05-31 23:15 | NUR ---
NO CHANGE IN CONDITION, PATIENT IS SLEEPING, EASY TO AROUSE, VITAL SIGNS ARE WITH IN NORMAL RANGE. REPOSITIONED PATIENT TO HIS RIGHT SIDE. CALL LIGHT WITHIN REACH, SAFETY MEASURE ENSURED, WILL CONTINUE TO MONITOR.
[2017-06-01] VITALS: BP 125/56
--- NOTE | 2017-06-01 00:01 | NUR ---
PATIENT IS EXAMINED BY DR. MCKEON, NO NEW ORDER RECEIVED AT THIS TIME.
--- NOTE | 2017-06-01 01:13 | NUR ---
PATIENT ASLEEP IN BED, NO S/S OF DISTRESS NOTED, RESPIRATION EVEN AND UNLABORED, REPOSITIONED PATIENT TO HIS LT SIDE. CALL LIGHT WITHIN REACH, SAFETY MEASURE ENSURED, WILL CONTINUE TO MONITOR.
--- NOTE | 2017-06-01 03:28 | NUR ---
PATIENT HAD BOWEL MOVEMENT, LARGE AMOUNT. CLEANED PATIENT AND CHANGED DRESSING. REPOSITIONED PATIENT TO HIS RIGHT SIDE. CALL LIGHT WITHIN REACH, SAFETY MEASURE ENSURED, WILL CONTINUE TO MONITOR.
[2017-06-01 04:00] VITALS: BP 148/72
[2017-06-01] MEDS: PIPER/TAZO 2.25GM/D5W PREMIX 50 ML IV SCH ×3 (04:22→20:38)
[2017-06-01] MEDS: DEXT 5% / NACL 0.45% 1,000 ML IV SCH ×2 (05:00→14:30)
--- NOTE | 2017-06-01 05:52 | NUR ---
MADE BOWEL MOVEMENT AGAIN. CLEANED PATIENT, AND REPOSITIONED PATIENT TO HIS LT SIDE. PATIENT IS AWAKE ALERT ORIENTED X3, NO S/S OF DISTRESS NOTED, RESPIRATION EVEN AND UNLABORED, CALL LIGHT WITHIN REACH, SAFETY MEASURE ENSURED, WILL CONTINUE TO MONITOR.
[2017-06-01] MEDS: BLOOD GLUCOSE MONITORING 1 DEV DEV FS SCH ×4 (06:26→20:42)
[2017-06-01] MEDS: INSULIN LISPRO SLIDING SCALE 100 UNITS/ML VIAL SUBQ PRN ×4 (06:30→21:02)
[2017-06-01 06:38] LABS: BASOPHILS % (AUTO) 0.4 % (0.0-2.0); EOSINOPHILS # (AUTO) 0.6 K/uL (0-0.4); EOSINOPHILS % (AUTO) 4.9 % (0.0-4.0); HEMATOCRIT 31.7 % (36-52); HEMOGLOBIN 10.4 g/dL (12.0-18.0); LYMPHOCYTES % (AUTO) 8.4 % (20.5-51.1); MEAN CORPUSCULAR HEMOGLOBIN 31 pg (27-31); MEAN CORPUSCULAR HGB CONC 33 g/dL (33-37); MEAN CORPUSCULAR VOLUME 93 fL (80-94); MONOCYTES # (AUTO) 0.5 K/uL (0.8-1.0); MONOCYTES % (AUTO) 4.5 % (1.7-9.3); NEUTROPHILS # (AUTO) 9.8 K/uL (1.8-7.7); NEUTROPHILS % (AUTO) 81.8 % (42.2-75.2); PLATELET COUNT (AUTO) 98 K/uL (140-450); RED BLOOD CELL COUNT(AUTO) 3.39 MIL/uL (4.20-6.10)
[2017-06-01 06:58] LABS: ANION GAP 16.3 (8-16); CARBON DIOXIDE 20.6 mmol/L (21-32); CHLORIDE 123 mmol/L (98-107); GLUCOSE 286 mg/dL (74-106); POTASSIUM 3.9 mmol/L (3.5-5.1); SODIUM SERUM 156 mmol/L (136-145)
[2017-06-01 07:01] LABS: PHOSPHORUS 4.2 mg/dL (2.5-4.9)
[2017-06-01 07:07] LABS: CREATININE 8.2 mg/dL (0.7-1.3); UREA NITROGEN, BLOOD 103 mg/dL (7-18)
--- NOTE | 2017-06-01 07:15 | NUR ---
ENDORSED PLAN OF CARE TO DAY RN, PATIENT IS IN STABLE CONDITION. NO S/S OF DISTRESS.
--- NOTE | 2017-06-01 07:25 | NUR ---
RECEIVED PT IN BED, AWAKE, ALERT ORIENTED X3. NO SOB NOTED. DENIES ANY PAIN OR DISCOMFORT AT THIS TIME. PT ON BEDREST. SAFETY PRECAUTION IN PLACE. CALL LIGHT WITHIN REACH.
[2017-06-01 07:33] LABS: CKMB RELATIVE INDEX 0.3 (0.0-2.5); CREATINE KINASE MB 11.7 ng/mL (0-3.6)
[2017-06-01 07:50] LABS: WHITE BLOOD COUNT (AUTO) 11.9 K/uL (4.8-10.8)
[2017-06-01 08:00] VITALS: BP 137/64
[2017-06-01] MEDS: FOAM DRESSING TP SCH (09:00)
[2017-06-01 12:00] VITALS: BP 149/76
[2017-06-01] MEDS: NACL 0.9% IRR 250 ML BOTTLE IR SCH (12:18)
[2017-06-01] MEDS: Z-GUARD PASTE TP SCH (13:30)
[2017-06-01] MEDS: SKINTEGRITY HYDROGEL TP SCH (13:30)
[2017-06-01] MEDS: THERAHONEY GEL 42.5 GM TP SCH (13:30)
[2017-06-01 16:00] VITALS: BP 142/71
--- NOTE | 2017-06-01 16:09 | NUR ---
Social Service Note: I met with patient at bedside. Patient stated he would like his daughter Kelly Stone to pick snf on his behalf. I called and spoke with Kelly. Per Kelly, she does not want patient to be [facility] . She stated she would like me to fax inquiry to [facility] and other local snfs. I faxed inquiry to [facility], [facility] , and [facility] . Per Kelly, patient will not be a terminal gauger resident at snf, plan is for patient to return home upon discharge from snf or to stay with family members.
--- NOTE | 2017-06-01 18:25 | NUR ---
PT KEPT CLEAN, DRY AND COMFORTABLE, NEEDS ATTENDED. GOOD SKIN CARE PROVIDED. NO SOB NOTED. DENIES ANY PAIN OR DISCOMFORT AT THIS TIME. WILL ENDORSE TO NEXT SHIFT, PT ON STABLE CONDITION. FOR CONTINUITY OF CARE.
[2017-06-01] MEDS: NACL 0.45% 1,000 ML IV SCH (19:00)
--- NOTE | 2017-06-01 19:10 | NUR ---
RECEIVED REPORT FROM DAY SHIFT RN, PT IS AWAKE, CONFUSED, AND HARD OF HEARING. HE IS ON ROOM AIR. NO SOB OR SIGNS OF RESPIRATORY DISTRESS NOTED. NON-INTACT SKIN, MULTIPLE WOUNDS NOTED, 22G IV TO RIGHT HAND INFUSING 1/2 NS@150ML/HR. PT IS ON BEDREST. TAVAREZ CATHETER IN PLACE WITH CLEAR PALE YELLOW URINE IN BAG. SAFETY PRECAUTION IN PLACE. UPDATED BOARD. DISCUSSED PLAN OF CARE WITH PT. VITAL SIGNS WITHIN NORMAL LIMITS. BED IN LOW POSITION, CALL LIGHT WITHIN REACH. WILL CONTINUE TO MONITOR.
[2017-06-01 20:00] VITALS: BP 132/72
--- NOTE | 2017-06-01 21:15 | NUR ---
PT DENIES PAIN AT THIS MOMENT. PT IN STABLE CONDITION, NO SIGNS OF DISTRESS NOTED. BED IN LOW POSITION, CALL LIGHT WITHIN REACH. WILL CONTINUE TO MONITOR.
[2017-06-02] VITALS: BP 130/68
--- NOTE | 2017-06-02 01:00 | NUR ---
PT IN STABLE CONDITION, NO SIGNS OF DISTRESS NOTED. BED IN LOW POSITION, CALL LIGHT WITHIN REACH. WILL CONTINUE TO MONITOR.
[2017-06-02] MEDS: NACL 0.45% 1,000 ML IV SCH ×4 (01:30→20:52)
[2017-06-02 04:00] VITALS: BP 133/69
--- NOTE | 2017-06-02 04:30 | NUR ---
CLEANED PT AND REPOSITIONED WITH HELP OF CNAS. PT IN STABLE CONDITION, NO SIGNS OF DISTRESS NOTED. BED IN LOW POSITION, CALL LIGHT WITHIN REACH. WILL CONTINUE TO MONITOR.
[2017-06-02] MEDS: PIPER/TAZO 2.25GM/D5W PREMIX 50 ML IV SCH ×3 (04:44→20:52)
[2017-06-02 06:08] LABS: BASOPHILS # (AUTO) 0.1 K/uL (0.00-0.22); BASOPHILS % (AUTO) 0.5 % (0.0-2.0); EOSINOPHILS # (AUTO) 0.9 K/uL (0-0.4); EOSINOPHILS % (AUTO) 7.5 % (0.0-4.0); HEMATOCRIT 31.3 % (36-52); LYMPHOCYTES # (AUTO) 1.1 K/uL (2.0-11.5); LYMPHOCYTES % (AUTO) 9.8 % (20.5-51.1); MEAN CORPUSCULAR HEMOGLOBIN 30 pg (27-31); MEAN CORPUSCULAR HGB CONC 32 g/dL (33-37); MEAN CORPUSCULAR VOLUME 94 fL (80-94); MONOCYTES # (AUTO) 0.5 K/uL (0.8-1.0); MONOCYTES % (AUTO) 4.4 % (1.7-9.3); NEUTROPHILS % (AUTO) 77.8 % (42.2-75.2); PLATELET COUNT (AUTO) 107 K/uL (140-450); RED BLOOD CELL COUNT(AUTO) 3.33 MIL/uL (4.20-6.10); RED CELL DISTRIBUTION WIDTH 13.4 % (11.6-13.7)
[2017-06-02 06:28] LABS: ANION GAP 17.1 (8-16); CARBON DIOXIDE 18.8 mmol/L (21-32); CHLORIDE 119 mmol/L (98-107); GLUCOSE 128 mg/dL (74-106); POTASSIUM 3.9 mmol/L (3.5-5.1); SODIUM SERUM 151 mmol/L (136-145)
[2017-06-02 06:29] LABS: MAGNESIUM 1.9 mg/dL (1.8-2.4); PHOSPHORUS 4.3 mg/dL (2.5-4.9)
[2017-06-02 06:36] LABS: CREATININE 7.5 mg/dL (0.7-1.3); UREA NITROGEN, BLOOD 100 mg/dL (7-18)
--- NOTE | 2017-06-02 06:37 | NUR ---
OLAMIDE FROM LAB CALLED WITH BUN AND CREATININE CRITICAL RESULTS, BUN 100, CR 7.5. RESIDENT NOT IN OFFICE, BUT LAB VALUES ARE TRENDING DOWN FROM YESTERDAY.
[2017-06-02] MEDS: BLOOD GLUCOSE MONITORING 1 DEV DEV FS SCH ×4 (06:46→20:50)
--- NOTE | 2017-06-02 07:20 | NUR ---
ENDORSED PT TO DAY SHIFT RN. PT IN STABLE CONDITION, NO SIGNS OF DISTRESS NOTED.
--- NOTE | 2017-06-02 07:25 | NUR ---
REPORT RECEIVED FROM SAUSAGE WRAPPER, PT AWAKE ALERT, RESP EVEN UNLABORED ON ROOM AIR, SKIN WARM DRY COLOR WNL, INITIAL ASSESSMENT COMPLETED, MULTIPLE WOUNDS COVERED WITH DRESSING, CDI, TAVAREZ DRAINING YELLOW URINE, PT DENIES PAIN OR DISCOMFORT, PLAN OF CARE DISCUSSED, PT VERBALIZED FULL UNDERSTANDING, PT ON WOUND BED, CALL HOWE WITHIN REACH, SIDE RAILS UP, BED LOCKED IN LOW POSITION, WILL CONTINUE TO MONITOR.
[2017-06-02 07:30] LABS: WHITE BLOOD COUNT (AUTO) 11.6 K/uL (4.8-10.8)
[2017-06-02 08:00] VITALS: BP 146/70
--- NOTE | 2017-06-02 09:00 | NUR ---
PHYSICAL THERAPY AT BEDSIDE
--- NOTE | 2017-06-02 09:30 | NUR ---
LARGE BM X3, PERICARE DONE, LINEN CHANGED, SOILED DRESSING, WOUND CLEANED WITH NS, NEW DRESSING APPLIED TO SACRAL WOUNDS AND UPPER BACK WOUND, PT JORGE WELL.
--- NOTE | 2017-06-02 10:15 | NUR ---
JOS WORLEY AT BEDSIDE.
--- NOTE | 2017-06-02 10:30 | NUR ---
PER PHARMACY, ZOSYN ORDER , DR Yannick MIRANDA CALLED, TELEPHONE ORDER RECEIVED TO CONTINUE CONTINUE ZOSYN 2.25G Q8H IV PER DR Yannick MIRANDA.
[2017-06-02 12:00] VITALS: BP 148/76
[2017-06-02] MEDS: INSULIN LISPRO SLIDING SCALE 100 UNITS/ML VIAL SUBQ PRN (12:53)
--- NOTE | 2017-06-02 13:30 | NUR ---
CM NOTE PER [facility], VISITED PATIENT AT BEDSIDE. OK TO ACCEPT PATIENT; WILL BE SPEAKING W/ FAMILY.
--- NOTE | 2017-06-02 13:55 | NUR ---
BM X1, PERICARE DONE, LINEN CHANGED, POSITION CHANGED, PT JORGE WELL.
[2017-06-02] MEDS: SKINTEGRITY HYDROGEL TP SCH (13:58)
[2017-06-02] MEDS: NACL 0.9% IRR 250 ML BOTTLE IR SCH (13:58)
[2017-06-02] MEDS: THERAHONEY GEL 42.5 GM TP SCH (13:59)
[2017-06-02] MEDS: Z-GUARD PASTE TP SCH (13:59)
--- NOTE | 2017-06-02 14:03 | NUR ---
06/02/17 RD FOLLOW-UP ASSESSMENT COMPLETED PLEASE REFER TO NUTRITION ASSESSMENT UNDER CARE ACTIVITY FOR ESTIMATED NUTRITIONAL NEEDS. 1. CONTINUE REGULAR, PUREE DIET 2. ADD VITAMIN C 1000 MG/DAY (FOR WOUND HEALING) 3. RD TO FOLLOW-UP 3-5 DAYS, HIGH RISK ASHA JAY, JENNY
--- NOTE | 2017-06-02 14:48 | NUR ---
CM NOTE UPDATED PROGRESS NOT[facility] / FAX# [phone]
[2017-06-02 16:00] VITALS: BP 152/69
--- NOTE | 2017-06-02 16:22 | NUR ---
* ST D/C NOTE * Pt seen at bedside. Pt and nsg reporting pt exhibiting no difficulty masticating or swallowing current PO diet consistency. Pt tolerating 1/2 alternating PO trials of regular solid saltine crackers, but requiring moderate to maximal verbal, visual and tactile cueing to masticate boluses and to swallow. Pt also exhibiting moderate pocketing and residue of bolus in oral cavity after PO intake. Pt however tolerating 2/2 alternating PO trials of thin liquid juice via a straw w/out s/s of aspiration. Pt and caregiver/nsg education completed regarding benefits of utilizing safe swallow compensatory strategies to aid pt w/swallow function. It is thus recommended pt remain on PO diet consistency of puree textures w/thin liquids for all meals, with pt and caregivers/nsg verbalizing understanding and agreement w/clinician's recommendations. Pt and caregivers/nsg education completed regarding pt remaining on current PO diet consistency and benefits of utilizing aspiration precautions, with pt and caregivers/nsg verbalizing understanding and agreement. Recommend: - Pt remain on PO diet consistency of Puree textures w/Thin liquids for all meals 2/2 to pt's confusion and bxs - CLOSE supervision during PO intake by caregivers/staff/family to assure STRICT aspiration precautions are in place secondary to pt's bxs and dementia/confusion - Pt requires total assistance w/feeding - Feeder to sit pt up at 70-90 degree angle during PO intake, alternating btwn solids and liquids, and utilizing small sips/bites - Complete oral hygiene care daily No further ST follow up recommended at this time. G8997 CJ G8998 NOMS Level 3 Time In/Out 16:00 - 16:30
--- NOTE | 2017-06-02 17:12 | NUR ---
DAUGHTER JUAN AT BEDSIDE, PLAN OF CARE DISCUSSED, DAUGHTER STATES SHE DOES NOT WANT PT TO GO TO [place] FOR REHAB, DAUGHTER IS VISITING OTHER REHAB FACILITIES IN [place] TOMORROW, SHE STATES SHE WILL CONTACT CASE MANAGEMENT WHEN SHE DECIDES WHERE SHE PREFERS PT TO GO TO. WILL NOTIFY CM OF DAUGHTER'S REQUEST.
--- NOTE | 2017-06-02 17:17 | NUR ---
BM X2, PERICARE DONE, LINEN CHANGED, POSITIONED FOR COMFORT, NO OTHER NEEDS VOICED AT THIS TIME, WILL CONTINUE TO MONITOR.
--- NOTE | 2017-06-02 18:52 | NUR ---
DAUGHTER AT BEDSIDE PT TALKING WITHOUT PROBLEM, PT REFUSES TO EAT DINNER, PT EDUCATED ON IMPORTANCE OF TAKING IN NUTRIENTS TO PROMOTE HEALING, DAUGHTER ENCOURAGING PT TO EAT. PT REMAINS ON ANIMAL CARE GIVER, PT DENIES PAINT OR DISCOMFORT, PT DENIES ANY IMMEDIATE NEEDS WILL CONTINUE TO MONITOR.
--- NOTE | 2017-06-02 19:30 | NUR ---
PATIENT REPORT RECEIVED FROM MORNING NURSE. PATIENT IS AWAKE AND ALERT. NO SIGNS AND SYMPTOMS OF DISTRESS NOTED. NO COMPLAINTS OF PAIN AT THIS TIME. IV SITE NOTED ON RIGHT HAND, IVF INFUSING WELL. MULTIPLE WOUNDS COVERED WITH DRESSING NOTED. TAVAREZ CATHETER IN PLACE AND DRAINING YELLOW URINE. PATIENT RESTING ON WOUND BED. BED IN LOWEST POSITION, SIDE RAILS UP AND CALL LIGHT WITHIN REACH. WILL CONTINUE TO MONITOR.
--- NOTE | 2017-06-02 19:30 | NUR ---
REPORT GIVEN TO CUSTOMER EXPERIENCE RETAIL CLERK NURSE, PT INSTABLE CONDITION.
[2017-06-02 20:00] VITALS: BP 141/71
[2017-06-03] VITALS: BP 148/71
--- NOTE | 2017-06-03 | NUR ---
PATIENT HAD A SMALL BM. JABARI CARE DONE. MANAGER PLACEMENT PRESENT TO ASSIST.
[2017-06-03 04:00] VITALS: BP 152/78
[2017-06-03] MEDS: NACL 0.45% 1,000 ML IV SCH ×4 (04:10→23:38)
[2017-06-03] MEDS: PIPER/TAZO 2.25GM/D5W PREMIX 50 ML IV SCH ×3 (05:10→21:07)
[2017-06-03 06:46] LABS: BASOPHILS % (AUTO) 0.4 % (0.0-2.0); EOSINOPHILS # (AUTO) 0.7 K/uL (0-0.4); EOSINOPHILS % (AUTO) 8.2 % (0.0-4.0); HEMATOCRIT 30.1 % (36-52); HEMOGLOBIN 9.7 g/dL (12.0-18.0); LYMPHOCYTES # (AUTO) 0.9 K/uL (2.0-11.5); LYMPHOCYTES % (AUTO) 9.5 % (20.5-51.1); MEAN CORPUSCULAR HEMOGLOBIN 30 pg (27-31); MEAN CORPUSCULAR HGB CONC 32 g/dL (33-37); MEAN CORPUSCULAR VOLUME 93 fL (80-94); MONOCYTES # (AUTO) 0.6 K/uL (0.8-1.0); MONOCYTES % (AUTO) 6.7 % (1.7-9.3); NEUTROPHILS # (AUTO) 6.9 K/uL (1.8-7.7); NEUTROPHILS % (AUTO) 75.2 % (42.2-75.2); PLATELET COUNT (AUTO) 109 K/uL (140-450); RED BLOOD CELL COUNT(AUTO) 3.23 MIL/uL (4.20-6.10); RED CELL DISTRIBUTION WIDTH 12.7 % (11.6-13.7); WHITE BLOOD COUNT (AUTO) 9.1 K/uL (4.8-10.8)
[2017-06-03] MEDS: BLOOD GLUCOSE MONITORING 1 DEV DEV FS SCH ×4 (06:50→20:00)
[2017-06-03] MEDS: INSULIN LISPRO SLIDING SCALE 100 UNITS/ML VIAL SUBQ PRN ×4 (06:53→20:01)
[2017-06-03 07:06] LABS: ANION GAP 14.4 (8-16); CARBON DIOXIDE 21.2 mmol/L (21-32); CHLORIDE 115 mmol/L (98-107); GLUCOSE 162 mg/dL (74-106); POTASSIUM 3.6 mmol/L (3.5-5.1); SODIUM SERUM 147 mmol/L (136-145)
[2017-06-03 07:08] LABS: MAGNESIUM 1.7 mg/dL (1.8-2.4); PHOSPHORUS 3.7 mg/dL (2.5-4.9)
[2017-06-03 07:17] LABS: UREA NITROGEN, BLOOD 89 mg/dL (7-18)
[2017-06-03 07:18] LABS: CREATININE 6.7 mg/dL (0.7-1.3)
--- NOTE | 2017-06-03 07:19 | NUR ---
PATIENT REPORT GIVEN TO MORNING NURSE. PATIENT IS IN STABLE CONDITION
--- NOTE | 2017-06-03 07:20 | NUR ---
REPORT RECEIVED FROM BRIM BLOCKER NURSE, PT AWAKE ALERT RESP EVEN UNLABORED ON ROOM AIR, SKIN WARM DRY COLOR WNL, TAVAREZ DRAINING WELL, DRESSING ON SCALP, UPPER BACK, SACRUM, BILAT KNEES CLEAN DRY INTACT, PT DENIES PAIN OR DISCOMFORT, PLAN OF CARE REVIEWED, PT VERBALIZED FULL UNDERSTANDING, CALL HOWE WITHIN REACH, SIDE RAILS UP, BED LOCKED IN LOW POSITION, PT ON CHIEF STRATEGY OFFICER, WILL CONTINUE TO MONITOR.
[2017-06-03 08:03] VITALS: BP 148/74
[2017-06-03 08:13] LABS: CKMB RELATIVE INDEX 0.7 (0.0-2.5); CREATINE KINASE MB 20.6 ng/mL (0-3.6)
--- NOTE | 2017-06-03 08:55 | NUR ---
PT SITTING UP EATING BREAKFAST, DAUGHTER AT BEDSIDE, CM NOTIFIED OF DAUGHTER PRESENCE AT BEDSIDE.
--- NOTE | 2017-06-03 09:26 | NUR ---
PHYSICAL THERAPY AT BEDSIDE, CM AT BEDSIDE SPEAKING WITH DAUGHTER.
--- NOTE | 2017-06-03 09:37 | NUR ---
CALLED MERARI FROM [place], NO BEDS. WENT TO PATIENT'S ROOM AND SPOKE WITH DAUGHTER, MARY. SHE SAID NO [facility] AND [facility]. I TOLD HER THAT [place] HAD NO BEDS. SHE SAID SHE HAS ALREADY SEEN SOME SNF'S BUT IS STILL LOOKING. SHE SAID SHE RECEIVED A LIST OF SNF'S FROM THE [place] AND SHE WILL BE SEEING THEM TODAY. THEY ARE IN [place]. SHE SAID SHE WILL CALL ME TODAY WITH THE SNF SHE WANTS.
[2017-06-03] MEDS: FOAM DRESSING TP SCH (09:55)
--- NOTE | 2017-06-03 10:00 | NUR ---
PT SITTING UP IN CHAIR WITH ASSIST FROM PT. JORGE WELL. DAUGHTER AT BEDSIDE, CALL BALL WITHIN REACH, WILL CONTINUE TO MONITOR.
--- NOTE | 2017-06-03 10:42 | NUR ---
WOUND CARE DONE BY ANGEL WOUND CARE NURSE. PERICARE DONE, POSITION CHANGED, DAUGHTER REMAINS AT BEDSIDE, WILL CONTINUE TO MONTIOR.
[2017-06-03 12:00] VITALS: BP 140/83
--- NOTE | 2017-06-03 12:08 | NUR ---
RIGHT HAND PIV LEAKING AND PT C/O PAIN AT THE SITE, NEW IV STARTED TO LEFT FOREARM 22G, PT JORGE WELL. IVF RESUMED, IV ANTIBIOTIC STARTED.
[2017-06-03] MEDS: NACL 0.9% IRR 250 ML BOTTLE IR SCH (13:05)
[2017-06-03] MEDS: THERAHONEY GEL 42.5 GM TP SCH (13:06)
[2017-06-03] MEDS: Z-GUARD PASTE TP SCH (13:06)
[2017-06-03] MEDS: SKINTEGRITY HYDROGEL TP SCH (13:06)
[2017-06-03] MEDS ORDERED: MAG SULF 2000 MG/WATER PREMIX 50 ML IV SCH (14:00)
--- NOTE | 2017-06-03 14:22 | NUR ---
PT SITTING UP RESTING QUIETLY IN NAD, POSITION CHANGED, PILLOWS TO OFF LOAD PRESSURES AREA, CALL HOWE WITHIN REACH, SIDE RAILS UP, BED LOCKED IN LOW POSITION, WILL CONTINUE TO MONITOR.
[2017-06-03 16:00] VITALS: BP 140/67
--- NOTE | 2017-06-03 17:03 | NUR ---
PT DAUGHTER CALLED TO LET US KNOW THAT SHE WOULD LIKE TO HAVE PT GO TO [facility], DAUGHTER WENT TO TOUR THE FACILITY TODAY AND LIKED IT. DAUGHTER CALLED CASE MANAGEMENT BUT NO ANSWER, SO LEFT A MESSAGE. CHARGE NURSE NOTIFIED AND WILL F/U WITH CASE MANAGEMENT IN AM.
--- NOTE | 2017-06-03 17:43 | NUR ---
DR MCKEON CALLED, PT CONDITION UPDATED, PER DR MCKEON PT WILL NEED 1/2NS IVF AT 150ML/HR FOR UP TO 1WK AFTER DC TO REHAB THEN FOLLOW UP WITH DR MCKEON WITHIN A WK. PT UPDATED WITH PLAN, VERBALIZED FULL UNDERSTANDING.
--- NOTE | 2017-06-03 18:10 | NUR ---
PT SITTING UP EATING DINNER, DENIES PAIN OR DISCOMFORT, POSITION CHANGED WITH WOUND BED, PT DENIES ANY OTHER IMMEDIATE NEEDS, CALL HOWE WITHIN REACH, SIDE RAILS UP, BED LOCKED IN LOW POSITION, WILL CONTINUE TO MONITOR.
--- NOTE | 2017-06-03 19:23 | NUR ---
REPORT GIVEN TO HUMAN CAPITAL ANALYST NURSE FREDA, PT IN STABLE CONDITION.
--- NOTE | 2017-06-03 19:24 | NUR ---
RECEIVED BEDSIDE REPORT FROM DAY SHIFT NURSE, TRISTA RN, PT STABLE, NO DISTRESS NOTED, AAAOX4, [place], IV TO THE L FA 22G RUNNING 1/2NS @150 ML/HR INFUSING WELL, PRESSURE ULCER TO THE SACRAL, L OCCIPID, UPPER BACK AND BEHIND BOTH KNEES, DRESSING CLEAN AND INTACT, ALL SAFETY PRECAUTION MET, INITIAL ASSESSMENT DONE. CALL LIGHT WITHIN REACH, WILL CONTINUE TO MONITOR.
[2017-06-03 20:04] VITALS: BP 134/67
--- NOTE | 2017-06-03 21:07 | NUR ---
DUE MEDICATION GIVEN, PT TOLERATED WELL, PT STABLE, NO DISTRESS NOTED, REPOSITIONED PT, JABARI CARE, PM CARE AND SKIN CARE GIVEN, PT TOLERATED WELL, CALL LIGHT WITHIN REACH, BED ALARM ON, WILL CONTINUE TO MONITOR
--- NOTE | 2017-06-03 23:58 | NUR ---
DUE IVF GIVEN, PT TOLERATED WELL, VITAL SIGNS TAKEN, PT STABLE, NO DISTRESS NOTED, CALL LIGHT WITHIN REACH, WILL CONTINUE TO MONITOR.
[2017-06-04] VITALS: BP 133/73
--- NOTE | 2017-06-04 01:54 | NUR ---
REPOSITION PT, PT TOLERATED WELL, NO DISTRESS NOTED, CALL LIGHT WITHIN REACH, WILL CONTINUE TO MONITOR.
[2017-06-04 04:02] VITALS: BP 147/71
[2017-06-04] MEDS: PIPER/TAZO 2.25GM/D5W PREMIX 50 ML IV SCH ×2 (04:13→12:15)
--- NOTE | 2017-06-04 04:20 | NUR ---
REPOSITIONED PT, PT TOLERATED WELL, PT STABLE, NO DISTRESS NOTED. CALL LIGHT WITHIN REACH, WILL CONTINUE TO MONITOR.
[2017-06-04 05:48] LABS: BASOPHILS # (AUTO) 0.1 K/uL (0.00-0.22); BASOPHILS % (AUTO) 0.7 % (0.0-2.0); EOSINOPHILS # (AUTO) 0.7 K/uL (0-0.4); EOSINOPHILS % (AUTO) 7.7 % (0.0-4.0); HEMATOCRIT 24.9 % (36-52); HEMOGLOBIN 8.3 g/dL (12.0-18.0); LYMPHOCYTES # (AUTO) 1.1 K/uL (2.0-11.5); LYMPHOCYTES % (AUTO) 12.4 % (20.5-51.1); MEAN CORPUSCULAR HEMOGLOBIN 31 pg (27-31); MEAN CORPUSCULAR HGB CONC 33 g/dL (33-37); MEAN CORPUSCULAR VOLUME 92 fL (80-94); MONOCYTES # (AUTO) 0.7 K/uL (0.8-1.0); MONOCYTES % (AUTO) 7.7 % (1.7-9.3); NEUTROPHILS # (AUTO) 6.1 K/uL (1.8-7.7); NEUTROPHILS % (AUTO) 71.5 % (42.2-75.2); PLATELET COUNT (AUTO) 139 K/uL (140-450); RED BLOOD CELL COUNT(AUTO) 2.71 MIL/uL (4.20-6.10); RED CELL DISTRIBUTION WIDTH 12.9 % (11.6-13.7); WHITE BLOOD COUNT (AUTO) 8.7 K/uL (4.8-10.8)
[2017-06-04] MEDS: BLOOD GLUCOSE MONITORING 1 DEV DEV FS SCH ×2 (05:59→11:30)
[2017-06-04 06:04] LABS: ANION GAP 15.9 (8-16); CARBON DIOXIDE 19.3 mmol/L (21-32); CHLORIDE 111 mmol/L (98-107); GLUCOSE 156 mg/dL (74-106); POTASSIUM 3.2 mmol/L (3.5-5.1); SODIUM SERUM 143 mmol/L (136-145)
[2017-06-04 06:06] LABS: MAGNESIUM 2.3 mg/dL (1.8-2.4); PHOSPHORUS 3.8 mg/dL (2.5-4.9)
[2017-06-04] MEDS: NACL 0.45% 1,000 ML IV SCH ×2 (06:08→12:35)
[2017-06-04 06:10] LABS: CREATININE 5.7 mg/dL (0.7-1.3); UREA NITROGEN, BLOOD 77 mg/dL (7-18)
[2017-06-04] MEDS: INSULIN LISPRO SLIDING SCALE 100 UNITS/ML VIAL SUBQ PRN ×2 (06:13→12:14)
--- NOTE | 2017-06-04 06:13 | NUR ---
INSULIN ADMINISTERED PER MD ORDERED, BS OF 155 GIVEN 2 UNITS OF INSULIN, PT TOLERATED WELL, PT REPOSITIONED, NO DISTRESS NOTED, CALL LIGHT WITHIN REACH. WILL CONTINUE TO MONITOR.
--- NOTE | 2017-06-04 07:11 | NUR ---
GAVE BEDSIDE REPORT TO DAY SHIFT NURSE, TRISTA RN, PT STABLE, NO DISTRESS NOTED.
--- NOTE | 2017-06-04 07:15 | NUR ---
REPORT RECEIVED FROM GOODS LAYER, PT AWAKE ORIENTED X4 , RESP EVEN UNLABORED ON RA, SKIN WARM DRY COLOR WNL, IV INFUSING WELL, SITE CLEAR, MULTIPLE WOUND DRESSING CDI, TAVAREZ DRAINING WELL, PT DENIES PAIN OR DISCOMFORT, PLAN OF CARE REVIEWED, PT VERBALIZED FULL UNDERSTANDING, CALL HOWE WITHIN REACH, SIDE RAILS UP X2, BED LOCKED IN LOW POSITION, WILL CONTINUE TO MONITOR.
[2017-06-04 08:00] VITALS: BP 134/71
--- NOTE | 2017-06-04 09:14 | NUR ---
RECEIVED A MESSAGE FROM MARY, PATIENT DAUGHTER, THAT SHE DECIDED ON [facility]. [facility] AND SPOKE WITH GENIE. SHE SAID SHE WILL HAVE A BED FOR THIS PATIENT. SENT HER THE PACKET ON THE PATIENT. I CALLED [facility] THIS AM, NO BEDS. PER MERARI AT [facility], FOR TRANSPORT MAY USE [facility]. PHONE [phone]. THE PATIENT HAS THIS BENEFIT.
--- NOTE | 2017-06-04 09:35 | NUR ---
BED BATH GIVEN, PERICARE DONE, LINEN CHANGED, POSITION CHANGED, PT CONTINUES TO C/O PAIN THROUGH OUT THE BODY WITH MOVEMENT, JORGE WELL, CALL HOWE WITHIN REACH, SIDE RAILS UP, WILL CONTINUE TO MONIOR.
[2017-06-04] MEDS ORDERED: POTASSIUM CHLORIDE 10 MEQ TABER PO SCH (10:30)
--- NOTE | 2017-06-04 10:32 | NUR ---
PT SITTING UP IN CHAIR WITH ASSIST BY PHYSICAL THERAPY.
--- NOTE | 2017-06-04 11:00 | NUR ---
RECEIVED A CALL FROM GENIE AT [facility]. SHE IS ABLE TO ACCEPT THE PATIENT. HE WILL GO TO ROOM 121 BED 2 AFTER 3:[address] P[address] UNDER [address] TAYLOR PHONE REPORT TO [phone],ASK FOR STATION 1.
--- NOTE | 2017-06-04 11:48 | NUR ---
CALLED [facility], AND SPOKE WITH DELFINA. SET UP TRANSPORT FOR 4P.M.
--- NOTE | 2017-06-04 11:50 | NUR ---
CALLED DAUGHTER BARRETT AND INFORMED HER OF THE TIME OF TRANSPORT. Addendum: 06/04/17 at 1152 by Crystal Freeman CM DAUGHTERMARY.
[2017-06-04 12:00] VITALS: BP 136/62
[2017-06-04] MEDS ORDERED: [UNRECOGNIZED DRUG - OTHER] IV (12:22)
--- NOTE | 2017-06-04 12:27 | NUR ---
NOTIFIED DR RUBEN Eldridge REGARDING TAVAREZ AND DIABETIC MEDS . PER DR RUBEN Eldridge D/C PATIENT WITH TAVAREZ ONCE HE GETS HIS STRENGTH BACK THEY CAN TAKE IT OUT. WILL MONITOR THE BLOOD SUGAR AND DIABETIC MEDS WELL.
--- NOTE | 2017-06-04 12:30 | NUR ---
INSULIN GIVEN 2U FOR BLOOD SUGAR 169, PT JORGE WELL, PT SITTING UP TALKING WITH BROTHER AT BEDSIDE, IN GOOD SPIRIT, PLAN OF CARE DISCUSSED, PT TO GO TO [facility] TODAY AT 3:30PM. PT AND BROTHER VERBALIZED UNDERSTANDING.
[2017-06-04] MEDS: Z-GUARD PASTE TP SCH (12:34)
[2017-06-04] MEDS: SKINTEGRITY HYDROGEL TP SCH (12:34)
[2017-06-04] MEDS: NACL 0.9% IRR 250 ML BOTTLE IR SCH (12:34)
[2017-06-04] MEDS: THERAHONEY GEL 42.5 GM TP SCH (12:34)
--- NOTE | 2017-06-04 13:45 | NUR ---
DRESSING CHANGED, PHOTOS TAKEN, REPORT CALLED TO MERVIN AT [facility], AMBULANCE TO ARRIVE FOR TRANSPORT AROUND 1530, PT AWARE OF PLAN, BELONGINGS IN ONE BAG, MEDICATION COLLECTED FROM PHARMACY, AWAITING TRANSFER.
[2017-06-04 16:00] VITALS: BP 133/68
--- NOTE | 2017-06-04 16:25 | NUR ---
TRANSPORT HERE FOR TRANSFER TO [facility], REPORT GIVEN TO EMT, MEDICAL RECORDS AND PERSONAL BELONGINGS GIVEN TO EMT, PT AWAKE ALERT, OX4, SPEAKS CLEARLY, PIV 22G LEFT FA S/L'S, SITE WNCORBY Oliver REMAINS DRAINIGN WELL, DRESSINGS TO MULTIPLE WOUNDS INTACT, PT TO [facility] AT [facility] TIME VIA [facility].
== END 2017-06-04 16:25 | DRG 871 ==
LOC: MED 14:07 → MIC 16:08 → MTU 05-30 09:02
PROVIDERS: ADMIT Preventive Medicine Preventive Medicine/Occupational Environmental Medicine; ATTEND Preventive Medicine Preventive Medicine/Occupational Environmental Medicine
DX: A41.9 Sepsis, unspecified organism (principal); R65.21 Severe sepsis with septic shock; J96.01 Acute respiratory failure with hypoxia; N17.9 Acute kidney failure, unspecified; G93.41 Metabolic encephalopathy; L89.102 Pressure ulcer of unspecified part of back, stage 2; E87.0 Hyperosmolality and hypernatremia; G35 Multiple sclerosis; D69.6 Thrombocytopenia, unspecified; M62.82 Rhabdomyolysis; N39.0 Urinary tract infection, site not specified; I24.9 Acute ischemic heart disease, unspecified; R13.10 Dysphagia, unspecified; E83.42 Hypomagnesemia; N40.0 Benign prostatic hyperplasia without lower urinary tract symptoms; E83.51 Hypocalcemia; E86.0 Dehydration; D64.9 Anemia, unspecified; E78.5 Hyperlipidemia, unspecified; E55.9 Vitamin D deficiency, unspecified; G89.29 Other chronic pain; H40.9 Unspecified glaucoma; I13.10 Hypertensive heart and chronic kidney disease without heart failure, with stage 1 through stage 4 chronic kidney disease, or unspecified chronic kidney disease; N18.9 Chronic kidney disease, unspecified; R73.9 Hyperglycemia, unspecified; R74.0 Nonspecific elevation of levels of transaminase and lactic acid dehydrogenase [LDH]; E86.1 Hypovolemia; Z80.9 Family history of malignant neoplasm, unspecified; Z79.82 Long term (current) use of aspirin; Z79.899 Other long term (current) drug therapy
CPT/HCPCS: 36415; 36600; 70450; 71010; 73060; 73090; 73120; 73590; 73620; 76770; 80048; 80053; 81001; 82550; 82553; 82803; 82948; 83605; 83735; 83880; 84100; 84484; 85025; 85610; 85651; 85730; 86140; 87040; 87081; 87086; 92526; 92610; 93005; 96361; 96365; 97110; 97116; 97140; 97530; 97799; 99285; A6248; J1815; J2270; J2543; J3475; J7030; J7042; J7060; Q0092